=== PATIENT | female | born 1940 | race Two or more races ===

== ENCOUNTER 2017-08-25 11:31 | Emergency (ER) | payer OTHER ==
[~2017-08-25] VITALS: Ht 170.2 cm; Wt 71.2 kg
[2017-08-25] MEDS ORDERED: JANUVIA50 MG (11:55)
[2017-08-25] MEDS ORDERED: COZAAR100 MG (11:56)
[2017-08-25] MEDS ORDERED: PLAVIX75 MG (11:56)
[2017-08-25] MEDS ORDERED: ZOLOFT25 MG (11:56)
[2017-08-25] MEDS ORDERED: SINGULAIR10 MG (11:57)
[2017-08-25] MEDS ORDERED: SIMVASTATIN40 MG (11:57)
== END 2017-08-25 19:28 | disposition home or self-care (01) ==
LOC: ER 11:31
DX: K52.89 Other specified noninfective gastroenteritis and colitis (principal)